=== PATIENT | female | born 2000 | race Caucasian/White ===

== ENCOUNTER 2020-04-15 17:51 | Emergency (ER) | payer OTHER ==
[~2020-04-15] VITALS: Ht 177.8 cm; Wt 81.7 kg
[2020-04-15 18:04] VITALS: BP 123/74
[2020-04-15] MEDS ORDERED: ESTARYLLA1 EACH PO (18:07)
[2020-04-15] MEDS ORDERED: KEFLEX500 M1 PO (18:25)
[2020-04-15] MEDS ORDERED: BACTRIM DS TAB1 EACH PO (18:25)
== END 2020-04-15 18:38 | disposition home or self-care (01) ==
LOC: ER 17:51
DX: L03.115 Cellulitis of right lower limb (principal); Z79.899 Other long term (current) drug therapy

== ENCOUNTER 2020-04-18 10:42 | Emergency (ER) | payer OTHER ==
[~2020-04-18] VITALS: Ht 177.8 cm; Wt 81.7 kg
[~2020-04-18 10:42] MED LIST: BACTRIM DS TAB1 EACH PO; ESTARYLLA1 EACH PO; KEFLEX500 M1 PO
[2020-04-18 10:45] VITALS: BP 116/60
== END 2020-04-18 11:35 | disposition home or self-care (01) ==
LOC: ER 10:42
DX: B95.8 Unspecified staphylococcus as the cause of diseases classified elsewhere (principal); Z87.891 Personal history of nicotine dependence; Z79.899 Other long term (current) drug therapy

== ENCOUNTER 2020-05-15 10:49 | Emergency (ER) | payer OTHER ==
[~2020-05-15] VITALS: Ht 177.8 cm; Wt 81.7 kg
[2020-05-15 10:55] VITALS: BP 130/67
[2020-05-15] MEDS ORDERED: LAMOTRIGINE25 MG PO (10:58)
[2020-05-15] MEDS ORDERED: NAPROSYN500 MG PO (10:58)
== END 2020-05-15 11:48 | disposition home or self-care (01) ==
LOC: ER 10:49
DX: S16.1XXA Strain of muscle, fascia and tendon at neck level, initial encounter (principal); Z79.899 Other long term (current) drug therapy; Y04.2XXA Assault by strike against or bumped into by another person, initial encounter; Y93.89 Activity, other specified; Y92.89 Other specified places as the place of occurrence of the external cause; Y99.8 Other external cause status

== ENCOUNTER 2020-07-23 23:43 | Emergency (ER) | payer OTHER ==
[~2020-07-23] VITALS: Ht 177.8 cm; Wt 81.7 kg
[~2020-07-23 23:43] MED LIST changes: +LAMOTRIGINE25 MG PO; +NAPROSYN500 MG PO
[2020-07-23 23:51] VITALS: BP 132/82
[2020-07-24] LABS: URINE BLOOD 3+ (Negative); URINE CLARITY CLOUDY; URINE COLOR RED; URINE GLUCOSE-RANDOM* NEGATIVE (Negative); URINE KETONES TRACE (Negative); URINE NITRITE-REFLEX NEGATIVE (Negative); URINE PROTEIN (DIPSTICK) 3+ (Negative); URINE SPECIFIC GRAVITY 1.025 (1.005-1.035); URINE UROBILINOGEN 0.2 E.U./dl (0.2-1.0)
[2020-07-24 00:03] LABS: ICTOTEST (BILI CONFIRMATORY) Negative (Negative); URINE BILIRUBIN NEGATIVE (Negative); URINE LEUKOCYTES-REFLEX 2+ (Negative)
[2020-07-24 00:11] LABS: BACTERIA-REFLEX None Seen /HPF (None Seen); CASTS None Seen /LPF (None Seen); CRYSTALS None Seen /LPF (None Seen); MUCUS None Seen strn/LPF (None Seen); SQUAMOUS None Seen /LPF (0-3); URINE RBC >20 Many /HPF (0-2); URINE WBC-REFLEX >25 Many /HPF (0-5)
[2020-07-24] MEDS ORDERED: PYRIDIUM200 MG PO (00:52)
[2020-07-24] MEDS ORDERED: MACROBID 100 M100 M1 PO (00:52)
== END 2020-07-24 01:15 | disposition home or self-care (01) ==
LOC: ER 23:43
PROVIDERS: Emergency Medicine
DX: N30.90 Cystitis, unspecified without hematuria (principal)

== ENCOUNTER 2020-07-28 14:56 | Emergency (ER) | payer OTHER ==
[~2020-07-28] VITALS: Ht 177.8 cm; Wt 81.7 kg
[~2020-07-28 14:56] MED LIST changes: +MACROBID 100 M100 M1 PO; +PYRIDIUM200 MG PO
[2020-07-28 15:16] LABS: URINE BILIRUBIN NEGATIVE (Negative); URINE BLOOD 3+ (Negative); URINE CLARITY CLEAR; URINE COLOR RED; URINE GLUCOSE-RANDOM* 1+ (Negative); URINE KETONES TRACE (Negative); URINE LEUKOCYTES-REFLEX TRACE (Negative); URINE PROTEIN (DIPSTICK) 2+ (Negative); URINE SPECIFIC GRAVITY 1.015 (1.005-1.035); URINE UROBILINOGEN >= 8.0 E.U./dl (0.2-1.0)
[2020-07-28 15:17] LABS: URINE NITRITE-REFLEX POSITIVE (Negative)
[2020-07-28 15:25] LABS: BACTERIA-REFLEX 1-9 Few /HPF (None Seen); CASTS None Seen /LPF (None Seen); CRYSTALS None Seen /LPF (None Seen); SQUAMOUS 0-3 Few /LPF (0-3); URINE WBC-REFLEX 0-5 Rare /HPF (0-5)
[2020-07-28 15:48] LABS: ABSOLUTE NEUTROPHILS 4.8 thou/uL (1.4-8.2); BASOPHILS 0.4 % (0.0-2.0); EOSINOPHILS 0.7 % (0.0-3.0); HEMATOCRIT 41.2 % (37.0-47.0); HEMOGLOBIN 13.7 gm/dL (12.0-15.0); LYMPHOCYTES 19.4 % (24.0-44.0); MCHC 33.4 g/dL (28.0-37.0); MCV 86.8 fL (80.0-100.0); PLATELET COUNT 244 thou/uL (150-400); POLYS 70.5 % (36.0-66.0); RBC 4.74 mil/uL (4.20-5.00); RDW 13.2 % (10.5-14.5); WBC 6.8 thou/uL (4.0-11.0)
[2020-07-28 15:58] LABS: CREATININE 0.7 mg/dL (0.6-1.0); POTASSIUM 3.9 mmol/L (3.5-5.1)
[2020-07-28 16:01] LABS: ALBUMIN 3.8 g/dL (3.4-5.0); TOTAL BILIRUBIN 0.5 mg/dL (0.2-1.0); TOTAL PROTEIN 7.4 g/dL (6.4-8.2)
[2020-07-28] MEDS ORDERED: BACTRIM DS TAB1 EACH PO (16:48)
[2020-07-28 17:04] VITALS: BP 106/69
== END 2020-07-28 17:05 | disposition home or self-care (01) ==
LOC: ER 14:56
PROVIDERS: Physician Assistant
DX: N12 Tubulo-interstitial nephritis, not specified as acute or chronic (principal); N39.0 Urinary tract infection, site not specified; R42 Dizziness and giddiness; Z79.899 Other long term (current) drug therapy; Z79.2 Long term (current) use of antibiotics

== ENCOUNTER 2020-09-29 11:04 | Emergency (ER) | payer OTHER ==
[~2020-09-29] VITALS: Ht 177.8 cm; Wt 86.2 kg
[2020-09-29 11:04] VITALS: BP 110/72
[2020-09-29] MEDS ORDERED: BACTRIM DS TAB1 EACH PO (11:40)
== END 2020-09-29 11:50 | disposition home or self-care (01) ==
LOC: ER 11:04
DX: L02.415 Cutaneous abscess of right lower limb (principal); Z79.2 Long term (current) use of antibiotics; Z79.899 Other long term (current) drug therapy; Z86.14 Personal history of Methicillin resistant Staphylococcus aureus infection